=== PATIENT | male | born 1970 | race Caucasian/White ===

== ENCOUNTER 2020-09-07 09:44 | Emergency (ER) | payer OTHER ==
[~2020-09-07] VITALS: Wt 83.9 kg
[~2020-09-07 09:44] MED LIST: NORCO 5-325 TA1 EACH PO
== END 2020-09-07 12:41 | disposition home or self-care (01) ==
LOC: ED 09:44
DX: S09.90XA Unspecified injury of head, initial encounter (principal); M54.2 Cervicalgia; Z88.0 Allergy status to penicillin; Z79.899 Other long term (current) drug therapy; W01.10XA Fall on same level from slipping, tripping and stumbling with subsequent striking against unspecified object, initial encounter; Y93.89 Activity, other specified; Y92.89 Other specified places as the place of occurrence of the external cause; Y99.8 Other external cause status

== ENCOUNTER 2021-12-06 18:44 | Emergency (ER) | payer SELFPAY ==
[2021-12-06] MEDS ORDERED: Motrin,Rufen800 MG PO (22:07)
== END 2021-12-06 22:07 | disposition home or self-care (01) ==
LOC: ED 18:44
DX: M76.61 Achilles tendinitis, right leg (principal); Z88.0 Allergy status to penicillin; Z79.899 Other long term (current) drug therapy

== ENCOUNTER 2022-07-23 22:59 | Emergency (ER) | payer SELFPAY ==
[~2022-07-23] VITALS: Ht 182.8 cm; Wt 79.4 kg
[~2022-07-23 22:59] MED LIST changes: +Motrin,Rufen800 MG PO
[2022-07-24] MEDS ORDERED: METHOCARBAMOL750 M1 PO (00:40)
[2022-07-24] MEDS ORDERED: NAPROXEN250 MG PO (00:40)
== END 2022-07-24 00:50 | disposition home or self-care (01) ==
LOC: ED
DX: S29.011A Strain of muscle and tendon of front wall of thorax, initial encounter (principal); Z88.0 Allergy status to penicillin; W51.XXXA Accidental striking against or bumped into by another person, initial encounter; Y93.89 Activity, other specified; Y92.89 Other specified places as the place of occurrence of the external cause; Y99.8 Other external cause status

== ENCOUNTER 2023-09-24 20:17 | Inpatient (IN) | payer OTHER ==
[~2023-09-24] VITALS: Ht 180.3 cm; Wt 80.7 kg
[~2023-09-24 20:17] MED LIST changes: +METHOCARBAMOL750 M1 PO; +NAPROXEN250 MG PO
[2023-09-24 20:23] VITALS: BP 152/74
[2023-09-24] MEDS ORDERED: NITROGLYCERIN 0.4 MG BOT SL ONE (20:40)
[2023-09-24] MEDS ORDERED: ASPIRIN, CHEWABLE 81 MG TAB PO ONE (20:40)
[2023-09-24 20:48] LABS: BASO # 0.1 10*3/uL (0.0-0.1); BASO % 1.9 % (0.0-1.0); EOS # 0.3 10*3/uL (0.0-0.4); EOS % 3.9 % (1.0-4.0); HEMATOCRIT 45.4 % (42.0-52.0); LYMPH % 30.7 % (27.0-41.0); MEAN CELL VOLUME 89.9 fl (80.0-94.0); MEAN CORPUSCULAR HGB 30.9 pg (27.0-31.0); MEAN CORPUSCULAR HGB CONC 34.4 g/dl (33.0-37.0); MEAN PLATELET VOLUME 8.9 fl (9.6-12.3); MONO # 0.9 10*3/uL (0.1-1.0); MONO % 13.3 % (3.0-9.0); NEUT # 3.2 10*3/uL (2.3-7.9); PLATELET COUNT AUTOMATED 250 10*3/uL (130-400); RED BLOOD COUNT 5.05 10*6/uL (4.50-5.90); RED CELL DISTRI WIDTH 12.1 % (0-14.5); WHITE BLOOD COUNT 6.5 10*3/uL (4.8-10.8)
[2023-09-24 20:59] LABS: ACT PARTIAL THROMBO TIME 25.9 SECONDS (20.0-32.1)
[2023-09-24 21:04] LABS: ALKALINE PHOSPHATASE 62 U/L (46-116); BUN 9 mg/dl (9-23); CHLORIDE 104 mmol/L (98-107); CPK 167 U/L (34-171); POTASSIUM 3.4 mmol/L (3.4-5.1); SGPT/ALT 20 U/L (5-49)
[2023-09-24 21:34] VITALS: BP 142/70
[2023-09-24] MEDS ORDERED: Magnesium Hydroxide 30 ML UDC PO PRN (23:30)
[2023-09-24] MEDS ORDERED: Acetaminophen/Hydrocodone 5 MG/325 MG TABLET PO PRN (23:30)
[2023-09-24] MEDS ORDERED: BISACODYL 5 MG TAB PO PRN (23:30)
[2023-09-24] MEDS ORDERED: BISACODYL 10 MG SUPP R PRN (23:30)
[2023-09-24] MEDS ORDERED: ACETAMINOPHEN 325 MG TAB PO PRN (23:30)
[2023-09-24] MEDS ORDERED: MORPHINE Sulfate 2 MG/ML SYR IV PRN (23:30)
[2023-09-24] MEDS ORDERED: ACETAMINOPHEN 650 MG SUPP R PRN (23:30)
[2023-09-24 23:44] VITALS: BP 107/80
[2023-09-24] MEDS ORDERED: MAGNESIUM SULFATE 50 ML IV ONE (23:55)
[2023-09-24] MEDS ORDERED: POTASSIUM CHLORIDE 20 MEQ TAB PO ONE (23:55)
[2023-09-25 02:03] VITALS: BP 97/57
[2023-09-25 05:30] VITALS: BP 103/66
[2023-09-25 06:33] LABS: BASO # 0.1 10*3/uL (0.0-0.1); BASO % 1.7 % (0.0-1.0); EOS # 0.4 10*3/uL (0.0-0.4); HEMATOCRIT 45.9 % (42.0-52.0); LYMPH # 2.2 10*3/uL (1.3-4.4); LYMPH % 36.9 % (27.0-41.0); MEAN CELL VOLUME 91.3 fl (80.0-94.0); MEAN CORPUSCULAR HGB 30.8 pg (27.0-31.0); MEAN CORPUSCULAR HGB CONC 33.8 g/dl (33.0-37.0); MEAN PLATELET VOLUME 9.3 fl (9.6-12.3); MONO # 0.8 10*3/uL (0.1-1.0); MONO % 13.8 % (3.0-9.0); NEUT # 2.4 10*3/uL (2.3-7.9); NEUT % 40.4 % (47.0-73.0); PLATELET COUNT AUTOMATED 250 10*3/uL (130-400); RED BLOOD COUNT 5.03 10*6/uL (4.50-5.90); RED CELL DISTRI WIDTH 12.3 % (0-14.5); WHITE BLOOD COUNT 5.9 10*3/uL (4.8-10.8)
[2023-09-25 06:49] LABS: BUN 9 mg/dl (9-23); CHLORIDE 106 mmol/L (98-107); CHOLESTEROL 193 mg/dL (<200); FREE T4 1.37 ng/dl (0.89-1.76); LDL CHOLESTEROL 119 mg/dL (9-159); TRIGLYCERIDES 83 mg/dl (<150)
[2023-09-25] MEDS ORDERED: Regadenoson 0.4 MG/5 ML SYR IV ONE (06:55)
[2023-09-25 06:59] LABS: POTASSIUM 4.6 mmol/L (3.4-5.1)
[2023-09-25] MEDS ORDERED: Technetium Tc 99M Tetrofosmi 0.23 MG KIT IJ SCH (07:25)
[2023-09-25 08:00] VITALS: BP 107/65
[2023-09-25] MEDS ORDERED: ATORVASTATIN CALCIUM 40 MG TABLET PO SCH (10:00)
[2023-09-25] MEDS ORDERED: ASPIRIN, CHEWABLE 81 MG TAB PO SCH (10:00)
[2023-09-25 12:00] VITALS: BP 111/72
[2023-09-25] MEDS ORDERED: VITAMIN D350 MC2 PO (14:08)
[2023-09-25] MEDS ORDERED: RIVAROXABAN 20 MG TAB PO SCH (18:00)
== END 2023-09-25 14:55 | disposition home or self-care (01) | DRG 310 ==
LOC: ED 20:17 → EDHOLD 21:21
PROVIDERS: Emergency Medicine; Student in an Organized Health Care Education/Training Program; ADMIT Internal Medicine; ATTEND Internal Medicine
PROC: 4A02XM4 Measurement of Cardiac Total Activity, External Approach (ICD-10-PCS; principal; 2023-09-25)
PROC: 3E033HZ Introduction of Radioactive Substance into Peripheral Vein, Percutaneous Approach (ICD-10-PCS; 2023-09-25)
DX: I48.0 Paroxysmal atrial fibrillation (principal); E78.5 Hyperlipidemia, unspecified; R73.9 Hyperglycemia, unspecified; E55.9 Vitamin D deficiency, unspecified; Z86.718 Personal history of other venous thrombosis and embolism; Z82.49 Family history of ischemic heart disease and other diseases of the circulatory system; Z87.891 Personal history of nicotine dependence; Z88.0 Allergy status to penicillin; Z79.899 Other long term (current) drug therapy